=== PATIENT | male | born 1980 | race Caucasian/White ===

== ENCOUNTER → 2017-06-20 | Outpatient (CLI) | payer OTHER ==
--- NOTE | 2017-06-20 10:33 | KCIC ---
Examination: Ultrasound abdomen complete HISTORY: History of elevated liver function test COMPARISON: None available FINDINGS: The pancreas is not well-visualized due to bowel gas. There is mild increased echogenicity noted throughout the liver likely steatosis. The right lobe of the liver measures 17 cm. The gallbladder is mildly distended. Mild echogenicity identified within the gallbladder likely sludge. The gallbladder wall thickness measures 3.2 mm. The right kidney measures 9.6 x 5.5 x 6.2 cm. The left kidney measures 10.0 x 4.9 x 6.5 cm. The visualized spleen grossly appears unremarkable. The visualized aorta, IVC are poorly visualized. IMPRESSION: 1. Increased echogenicity noted throughout the liver likely hepatic steatosis. 2. Small amount of echogenicity identified in the gallbladder likely sludge with questionable minimal thickened gallbladder wall. 3. Limited examination due to bowel gas. Electronically signed by: Gavino Chi MD (06/20/2017 10:29 AM) [id number]
== END | disposition home or self-care (01) ==
LOC: KCIC US 07:48
PROVIDERS: ATTEND Physician Assistant Medical
DX: R79.89 Other specified abnormal findings of blood chemistry (principal)
CPT/HCPCS: 76700